=== PATIENT | female | born 1985 | race Caucasian/White ===

== ENCOUNTER 2019-04-06 02:32 | Inpatient (IN) | payer OTHER ==
[2019-04-06] MEDS ORDERED: MINERAL OIL 30 ML ORAL LIQD PO PRN (03:04)
[2019-04-06] MEDS ORDERED: TERBUTALINE 1 MG/1 ML INJ IVP PRN (03:04)
[2019-04-06] MEDS ORDERED: TERBUTALINE 1 MG/1 ML INJ SUB-Q PRN (03:04)
[2019-04-06] MEDS ORDERED: LIDOCAINE (2%) 20 MG/1 ML VIAL 20 ML MDV INFILTRATI ONE (03:04)
[2019-04-06] MEDS ORDERED: ePHEDrine SULFATE 50 MG/1 ML INJ IV PRN (03:04)
[2019-04-06] MEDS ORDERED: AMPICILLIN/NS 2 GM/100 ML 2 GM/100 ML BAG IV ONE (03:04)
[2019-04-06] MEDS ORDERED: fentaNYL 100 MCG/2 ML INJ IV ONE (03:24)
[2019-04-06] MEDS ORDERED: fentaNYL 100 MCG/2 ML INJ ONE (03:27)
[2019-04-06 03:58] LABS: Hematocrit 31.4 % (30.3-42.9); Hemoglobin 10.7 gm/dl (10.1-14.3); Mean Corpuscular HGB Conc 34 % (30-34); Mean Corpuscular Volume 85 fl (79-97); Platelet Count 211 K/mm3 (140-440); Red Blood Count 3.68 M/mm3 (3.65-5.03); Red Cell Distribution Width 14.4 % (13.2-15.2)
[2019-04-06] MEDS ORDERED: OXYTOCIN 20 UNIT/1000ML DRIP 20 UNITS/1,000 ML BAG IV SCH (04:00)
[2019-04-06] MEDS ORDERED: LACTATED RINGERS 1,000 ML IV SCH (04:00)
[2019-04-06 04:46] LABS: Hepatitis C Virus Antibody Non-Reactive (NonReactive)
--- NOTE | 2019-04-06 04:48 | History and Physical Report ---
History of Present Illness Date of examination: 04/06/19 Date of admission: 04/06/19 03:04 Chief complaint: contractions History of present illness: Pt is a 33 year old Citizen Of [place] female LORRI 04/06/19 at 40w0d presents with regular contractions and advanced cervical dilation of 8 cm. She denies vaginal bleeding or leakage of fluid. She has had limited care with 9 wk sono that confirms due date. Her GBS status is unknown. Past History Past Medical History: no pertinent history Past Surgical History: no surgical history Social history: no significant social history - Obstetrical History Expected Date of Delivery: 04/06/19 Actual Gestation: 40 Week(s) 0 Day(s) : 3 Para: 2 Hx # Term Pregnancies: 2 Number of Pregnancies: 0 Spontaneous Abortions: 0 Induced : 0 Number of Living Children: 2 Medications and Allergies Allergies Allergy/AdvReac Type Severity Reaction Status Date / Time No Known Allergies Allergy Verified 04/06/19 03:04 Home Medications Medication Instructions Recorded Confirmed Last Taken Type No Known Home Medications [No 04/06/19 04/06/19 Unknown History Reported Home Medications] Active Meds: Active Medications Ephedrine Sulfate (Ephedrine Sulfate) 10 mg IV Q2M PRN PRN Reason: Hypotension Oxytocin/Sodium Chloride (Pitocin/Ns 20 Unit/1000ml Drip) 20 units in 1,000 mls @ 125 mls/hr IV DIRECT BASILIA Lactated Ringer's (Lactated Ringers) 1,000 mls @ 125 mls/hr IV DIRECT BASILIA Last Admin: 04/06/19 03:25 Dose: 125 mls/hr Documented by: Ampicillin Sodium (Ampicillin/Ns 1 Gm/50 Ml) 1 gm in 50 mls @ 100 mls/hr IV Q4HR BASILIA; Protocol Mineral Oil (Mineral Oil) 30 ml PO QHS PRN PRN Reason: Constipation Terbutaline Sulfate (Brethine) 0.25 mg SUB-Q ONCE PRN PRN Reason: Hyperstimulation/Hypertonicity Terbutaline Sulfate (Brethine) 0.25 mg IVP ONCE PRN PRN Reason: Hyperstimulation/Hypertonicity Review of Systems All systems: negative - Vital Signs Vital signs: Vital Signs Resp 18 04/06/19 03:31 Temp Pulse Resp BP Pulse Ox 18 04/06/19 03:31 - Physical Exam Breasts: Positive: deferred Cardiovascular: Regular rate Lungs: Positive: Clear to auscultation Abdomen: Positive: soft (gravid ) Genitourinary (Female): Positive: normal external genitalia Uterus: Positive: enlarged Extremities: Positive: normal - Obstetrical FHR: auscultation normal Uterine Contraction Monitor Mode: External Cervical Dilatation: 10 Cervical Effacement Percentage: 100 station: 0 Uterine Contraction Pattern: Regular Uterine Tone Measurement Phase: Resting Uterine Contraction Intensity: Strong/Firm Results Result Diagrams: 04/06/19 03:35 All other labs normal. Assessment and Plan A: IUP at 40w0d Transitional Labor GBS unknown No care P: Admit to labor and delivery Routine intrapartum care
--- NOTE | 2019-04-06 04:49 | Procedure Note ---
OB Delivery Note - Delivery Date of Delivery: 04/06/19 Surgeon: PIA DELGADO Estimated blood loss: other (400 mL) - Vaginal Delivery presentation: vertex Delivery position: OA Delivery induction: none Delivery monitor: external FHT, external uterine Route of delivery: Delivery placenta: spontaneous Delivery cord: 3 umbilical vessels Episiotomy: none Delivery laceration: 1st degree (hemostatic ) Anesthesia: none - Infant A at 1 minute: 8 at 5 minutes: 9 Gender: Male (3558g (7lb 14 oz) @ 0431 am)
[2019-04-06] MEDS ORDERED: AMPICILLIN/NS 1 GM/50 ML 1 GM/50 ML BAG IV SCH (07:05)
[2019-04-06] MEDS ORDERED: LANOLIN/ZINC/DIMETHICONE (LANSINOH) 7 GM TP PRN ×2 (08:52→09:00)
[2019-04-06] MEDS ORDERED: ACETAMINOPHEN 325 MG TAB PO PRN (09:00)
[2019-04-06] MEDS ORDERED: ONDANSETRON 4 MG/2 ML INJ IV PRN (09:00)
[2019-04-06] MEDS ORDERED: HYDROcodone/ACETAMINOPHEN 5-325 MG TAB PO PRN (09:00)
[2019-04-06] MEDS ORDERED: PROMETHAZINE 25 MG TAB PO PRN (09:00)
[2019-04-06] MEDS ORDERED: BENZOCAINE/MENTHOL 20/0.5% TOP SPRAY 56 GM TP PRN (09:00)
[2019-04-06] MEDS ORDERED: PROMETHAZINE 25 MG RECT SUPP PR PRN (09:00)
[2019-04-06] MEDS ORDERED: WITCH HAZEL/ GLYCERIN PAD TP PRN (09:00)
[2019-04-06] MEDS ORDERED: diphenhydrAMINE 25 MG CAP PO PRN (09:00)
[2019-04-06] MEDS: IBUPROFEN 600 MG TAB PO SCH ×3 (09:33→23:12)
[2019-04-06] MEDS: FERROUS SULFATE 325 MG TAB PO SCH ×2 (09:33→21:15)
[2019-04-06 19:05] LABS: Hematocrit 28.4 % (30.3-42.9); Hemoglobin 9.6 gm/dl (10.1-14.3)
[2019-04-06] MEDS ORDERED: MAGNESIUM HYDROXIDE (MOM) ORAL LIQD UDC PO PRN (22:00)
[2019-04-07] MEDS: IBUPROFEN 600 MG TAB PO SCH ×3 (05:19→18:15)
[2019-04-07] MEDS ORDERED: TETANUS,DIPH,PERTUSS(ACELL) VACCINE 0.5 ML SYRINGE IM ONE (06:00)
--- NOTE | 2019-04-07 08:43 | Progress Note ---
Assessment and Plan A/P PPD 1 routine PP care Subjective - Subjective Date of service: 04/07/19 Principal diagnosis: s/p Patient reports: appetite normal, voiding normally, pain well controlled, flatus, ambulating normally Dow: doing well Objective - Vital Signs Latest vital signs: Vital Signs Temp Pulse Resp BP Pulse Ox 04/07/19 01:15 98.0 F 63 18 110/53 98 04/06/19 16:05 98.0 F 68 20 104/48 99 04/06/19 11:33 98.0 F 66 20 110/53 98 Intake and Output 04/06/19 04/07/19 04/07/19 23:59 07:59 15:59 Intake Total 240 120 Output Total 500 Balance -260 120 Intake: Oral 240 120 Output: Urine 500 Void 500 Other: Total, Intake Amount 120 120 Total, Output Amount 500 # Voids Void 1 1 - Exam Breasts: Present: normal Cardiovascular: Present: Regular rate, Normal S1 Lungs: Present: Clear to auscultation, Normal air movement Abdomen: Present: normal appearance, soft, normal bowel sounds. Absent: distention, tenderness, guarding Uterus: Present: normal, firm, fundal height below umbilicus. Absent: bogginess, tenderness Extremities: Present: normal Deep Tendon Reflex Grade: Normal +2 Incision: Present: normal, dry, intact - Labs Labs: Abnormal lab results 04/06/19 Range/Units 18:44 Hgb 9.6 L (10.1-14.3) gm/dl Hct 28.4 L (30.3-42.9) %
[2019-04-07] MEDS: FERROUS SULFATE 325 MG TAB PO SCH (10:35)
[2019-04-07] MEDS ORDERED: MEASLES, MUMPS & RUBELLA 12,500 UNIT/0.5 ML VACCINE SUB-Q ONE (11:00)
[2019-04-08] MEDS: IBUPROFEN 600 MG TAB PO SCH ×2 (00:04→05:54)
[2019-04-08] MEDS: FERROUS SULFATE 325 MG TAB PO SCH ×2 (00:04→09:27)
--- NOTE | 2019-04-08 10:03 | Progress Note ---
Assessment and Plan PPD1 s/p Acute on chronic anemia- iron supplementation Vital signs stable d/c to home today Subjective - Subjective Date of service: 04/08/19 Principal diagnosis: s/p Interval history: PPD2 s/p Patient reports: appetite normal, voiding normally, pain well controlled, ambulating normally Halls: doing well, nursing well, bottle feeding (both) Objective - Vital Signs Latest vital signs: Vital Signs Temp Pulse Resp BP Pulse Ox 04/08/19 08:21 97.9 F 61 20 101/46 97 04/08/19 06:41 18 04/08/19 05:54 18 04/08/19 01:04 18 04/08/19 00:26 98.2 F 71 20 109/60 98 04/08/19 00:04 18 04/07/19 16:55 97.8 F 63 18 104/59 98 Intake and Output 04/07/19 04/08/19 04/08/19 23:59 07:59 15:59 Intake Total 240 360 Balance 240 360 Intake: Intake, Free Water 240 360 Other: # Voids Void 1 1 - Exam Lungs: Present: Normal air movement Abdomen: Present: soft Uterus: Present: firm, fundal height below umbilicus Extremities: Present: normal
--- NOTE | 2019-04-08 10:06 | Discharge Summary ---
Providers - Providers Date of Admission: 04/06/19 03:04 Date of discharge: 04/08/19 Attending physician: PIA DELGADO Primary care physician: [employer] Hospitalization Reason for admission: active labor Delivery: Episiotomy: none Laceration: 1st degree Other procedures: none complications: none Discharge diagnosis: IUP at term delivered Hospital course: Pt arrived in active labor and progressed to . course uncomplicated. Condition at discharge: Good Disposition: DC-01 TO HOME OR SELFCARE Plan - Discharge Medications Prescriptions: Ferrous Sulfate [Ferrous Sulfate 324 MG] 324 mg PO BID #60 tablet. Ibuprofen [Motrin] 600 mg PO Q6H PRN #60 tablet PRN Reason: Pain - Provider Discharge Summary Activity: routine, no sex for 6 weeks, no heavy lifting 4 weeks, no strenuous exercise Diet: routine Instructions: routine Additional instructions: [] Smoking cessation referral if applicable(refer to patient education folder for contact #) [] Refer to [facility]'s [facility] Booklet Call your doctor immediately for: * Fever > 100.5 * Heavy vaginal bleeding ( >1 pad per hour) * Severe persistent headache * Shortness of breath * Reddened, hot, painful area to leg or breast * Drainage or odor from incision. * Keep incision clean and dry at all times and follow doctor's instructions regarding bathing/showering - Follow up plan Follow up: WINNIE COTE CNM [Advanced Practice Nurse] - 6 Weeks (Please call [facility] to schedule appointment.) Forms: [facility] Discharge Summary
[2019-04-08 12:50] VITALS: BP 127/68
[2019-04-09] MEDS ORDERED: FLU VACC QUAD 2019-20 (3 YR UP)/PF 60 MCG/0.5 ML SYRINGE IM ONE (12:00)
== END 2019-04-08 13:40 | disposition home or self-care (01) | DRG 807 ==
LOC: TRG 02:32 → LD 03:04 → OBSVTOIN 03:04 → TRG 03:04 → OB 07:50
PROVIDERS: ADMIT Obstetrics & Gynecology; ATTEND Obstetrics & Gynecology
PROC: 10E0XZZ Delivery of Products of Conception, External Approach (ICD-10-PCS; principal; 2019-04-06)
PROC: 0HQ9XZZ Repair Perineum Skin, External Approach (ICD-10-PCS; 2019-04-06)
PROC: 3E0234Z Introduction of Serum, Toxoid and Vaccine into Muscle, Percutaneous Approach (ICD-10-PCS; 2019-04-07)
PROC: 3E0134Z Introduction of Serum, Toxoid and Vaccine into Subcutaneous Tissue, Percutaneous Approach (ICD-10-PCS; 2019-04-07)
DX: O70.0 First degree perineal laceration during delivery (principal); Z37.0 Single live birth; O99.02 Anemia complicating childbirth; Z3A.40 40 weeks gestation of pregnancy
CPT/HCPCS: 36415; 85014; 85018; 85027; 86592; 86706; 86762; 86803; 86850; 86900; 86901; 87806; 88307; 96360; 96365; G0378; J0290; J2590; J3010; J7120